=== PATIENT | male | born 1955 | race Caucasian/White ===

== ENCOUNTER 2020-09-01 07:23 | Outpatient (CLI) | payer MEDICARE, OTHER, SELFPAY ==
--- NOTE | ~2020-09-01 | MR_ITS ---
EXAMINATION: MR cervical spine wo con DATE: 09/01/2020 08:10 INDICATION: Cervical spinal stenosis. TECHNIQUE: Magnetic resonance imaging (MRI) of the cervical spine was performed without intravenous c ontrast. Sequences included sagittal T2-weighted FSE, sagittal STIR FSE, sagittal T1-weighted FSE, ax ial MERGE, and axial T2-weighted FSE. COMPARISON: Cervical spine MRI 05/20/2016 FINDINGS: Bone alignment is normal. Vertebral body heights are normal. There are changes of anterior fusion procedure from C5 to C7 with interbody devices and anterior plate and screws. There is mildly decreased disc height at C3-C4. The spinal cord signal intensity is normal. The following disc levels are specifically discussed: C2-C3: The disc does not extend beyond the endplate margin. There is no uncovertebral joint osteoarth ritis. There is mild bilateral facet joint osteoarthritis. There is no neural foraminal stenosis. The re is no central canal stenosis. C3-C4: The disc is bulging. There is mild right and severe left uncovertebral joint osteoarthritis. T here is mild bilateral facet joint osteoarthritis. There is mild right and moderate left neural yossi inal stenosis. There is mild central canal stenosis. C4-C5: There is a central extrusion. There is no uncovertebral joint osteoarthritis. There is moderat e left facet joint osteoarthritis. There is mild left neural foraminal stenosis. There is mild centra l canal stenosis. C5-C6: There is mild bilateral uncovertebral joint hypertrophy. There is mild bilateral facet joint o steoarthritis. There is mild right neural foraminal stenosis. There is no central canal stenosis. C6-C7: There is mild right and moderate left uncovertebral joint hypertrophy. There is mild bilateral facet joint osteoarthritis. There is mild bilateral neural foraminal stenosis. There is no central c anal stenosis. C7-T1: The disc does not extend beyond the endplate margin. There is no uncovertebral joint osteoarth ritis. There is moderate bilateral facet joint osteoarthritis. There is mild bilateral neural foramin al stenosis. There is no central canal stenosis. IMPRESSION: 1. Moderate cervical spondylosis. 2. Anterior fusion procedure from C5 to C7. Reviewed, dictated and finalized at location A. [employer]
== END 2020-09-01 07:24 | disposition home or self-care (01) ==
PROVIDERS: PCP Internal Medicine; Visit Provider Clinical Nurse Specialist
DX: M47.892 Other spondylosis, cervical region (principal); Z98.1 Arthrodesis status
CPT/HCPCS: 72141

== ENCOUNTER 2020-09-27 16:14 | Emergency (ER) | payer MEDICARE, OTHER, SELFPAY ==
--- NOTE | ~2020-09-27 | XR_ITS ---
EXAMINATION: XR finger 3rd RT min 2V DATE: 09/27/2020 16:48 INDICATION: Right hand third digit injury. TECHNIQUE: 4 views of right hand third digit were obtained. COMPARISON: None. FINDINGS: Bone alignment is normal. There is a transverse fracture of tuft of third distal phalanx wi th 1 mm distraction. There is moderate osteoarthritis of third metacarpophalangeal joint and distal i nterphalangeal joint and mild osteoarthritis of third proximal interphalangeal joint. IMPRESSION: 1. Transverse fracture of tuft of third distal phalanx. Reviewed, dictated and finalized at location A.
--- NOTE | 2020-09-27 16:32 | ED.GENADULT ---
HPI - General Adult General Chief complaint: Extremity Injury, Upper Stated complaint: injured 3digit right hand Time Seen by Provider: 09/27/20 16:32 Source: patient Mode of arrival: ambulatory Limitations: no limitations History of Present Illness HPI narrative: 65-year-old male patient presents to the [facility] with complaints of a right middle finger injury. 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 Patient unknown of what his last tetanus shot was. Patient states he did take either Tylenol or ibuprofen this morning after the injury occurred. Patient states he is having pain to the tip of the right middle finger and also some throbbing and states it feels a little numb at this time. Patient states he also has some bruising on the palm side of the fingertip and what appears to be some blood underneath the nail. Related Data Home Medications Medication Instructions Recorded Confirmed diclofenac sodium [Voltaren] 100 mg PO BID 09/27/20 09/27/20 rosuvastatin [Crestor] 10 mg PO DAILY 09/27/20 09/27/20 trazodone 100 mg PO HS 09/27/20 09/27/20 Allergies Allergy/AdvReac Type Severity Reaction Status Date / Time piroxicam Allergy Unknown Verified 02/21/20 14:10 theophylline Allergy tachycardia Verified 07/10/20 13:05 Review of Systems Review of Systems: Narrative: CONSTITUTIONAL: Denies fever, chills, or sweats. EYES: Denies visual changes, redness, or discharge. ENT: Denies rhinorrhea, congestion, sore throat, or otalgia. CARDIOVASCULAR: Denies chest pain, palpitations, or edema. RESPIRATORY: Denies cough or dyspnea. GASTROINTESTINAL: Denies abdominal pain, nausea, vomiting, or diarrhea. GENITOURINARY: Denies dysuria or hematuria. SKIN: Denies rash or itching. MUSCULOSKELETAL: Denies back pain, joint pain, or myalgia. Positive right middle finger pain NEUROLOGIC: Denies headache, numbness, or weakness. PSYCHIATRIC: Denies anxiety or depression. [facility] Past Medical History Medical History ADD (attention deficit disorder) Anxiety BMI 26.0-26.9,adult BPH (benign prostatic hyperplasia) Cognitive dysfunction CTS (carpal tunnel syndrome) Degenerative joint disease of hand Depression Diverticular disease Elevated homocysteine Encounter for Medicare annual wellness exam Encounter for routine adult health examination without abnormal findings GERD (gastroesophageal reflux disease) Headache Hearing loss Hx of Clostridium difficile infection Hx of concussion Hyperlipidemia Memory loss of unknown cause Microscopic hematuria On skilled nursing drug therapy Onychomycosis Osteoarthritis Sleep apnea Vertigo Vitamin D deficiency Surgical History Surgical History H/O rotator cuff surgery Right and Left H/O spinal fusion 2018 History of bowel resection Family History Family History Mother Family history of Alzheimer's disease Depression Father Family history of malignant neoplasm Grandparent Atherosclerosis Sibling Depression Suicide Social History Social History Smoking status: Never smoker Second hand tobacco smoke exposure: No Alcohol intake: current Gender identity (if verbalized by the patient): Male Comments At the time of my signature I agree with nursing past medical history, surgical, social, and family history. There is no relevant family history pertinent to the presenting complaint. Exam Narrative: Exam Narrative: GENERAL: Well-appearing, well-nourished, and in no acute distress. HEAD: Normocephalic, atraumatic. EYES: PERRLA and EOMI. ENT: Nares clear, no rhinorrhea or epistaxis. Mucous membranes moist. NECK: Supple. No lymphadenopathy CHEST: Clear to auscu
[2020-09-27 16:39] VITALS: BP 128/68; PULSE 75; RESP 18; TEMP 36.6; O2SAT 100
[2020-09-27] MEDS: TETANUS,DIPHTHERIA,AC PERTUSSIS ADULT (0.5 ML) BOOSTRIX IM (17:02)
== END 2020-09-27 17:15 | disposition home or self-care (01) ==
PROVIDERS: Emergency Provider Nurse Practitioner Family; PCP Internal Medicine
DX: S62.632A Displaced fracture of distal phalanx of right middle finger, initial encounter for closed fracture (principal); X58.XXXA Exposure to other specified factors, initial encounter; Y99.0 Civilian activity done for income or pay; S60.131A Contusion of right middle finger with damage to nail, initial encounter; Z23 Encounter for immunization; F32.9 Major depressive disorder, single episode, unspecified; K21.9 Gastro-esophageal reflux disease without esophagitis; Z86.19 Personal history of other infectious and parasitic diseases; E78.5 Hyperlipidemia, unspecified; M19.90 Unspecified osteoarthritis, unspecified site; G47.30 Sleep apnea, unspecified
CPT/HCPCS: 11740; 29130; 73140; 90471; 90715; 99214; G0463

== ENCOUNTER 2020-10-16 18:36 | Emergency (ER) | payer MEDICARE, OTHER, SELFPAY ==
[2020-10-16 18:49] VITALS: BP 120/70; PULSE 73; RESP 12; TEMP 36.8; O2SAT 99
--- NOTE | 2020-10-16 18:58 | ED.EYEPROB ---
HPI - Eye Problem General Chief complaint: Eye Problems Stated complaint: Scratched eye Time Seen by Provider: 10/16/20 18:58 Source: patient and RN notes reviewed Mode of arrival: ambulatory Limitations: no limitations History of Present Illness HPI Narrative: 65-year-old male presents with concern for painful, red left eye. Reports earlier today he scratched his eye and since then has been experiencing pain and watery drainage. He denies any vision changes, photophobia. He denies any intervention. He denies any sense of foreign body. chief complaint: eye pain Related Data Home Medications Medication Instructions Recorded Confirmed folic acid 10/16/20 rosuvastatin mg 10/16/20 terbinafine HCl mg 10/16/20 trazodone 10/16/20 Allergies Allergy/AdvReac Type Severity Reaction Status Date / Time piroxicam Allergy Unknown Verified 10/16/20 19:03 theophylline Allergy tachycardia Verified 10/16/20 19:03 Review of Systems Review of Systems: Narrative: CONSTITUTIONAL: Denies malaise, chills, sweats, or fever. EYES: Denies visual changes. Reports left eye pain, redness, watery discharge. ENT: Denies rhinorrhea, congestion, sinus pain, otalgia or sore throat. SKIN: Denies rash or itching. NEUROLOGIC: Denies headache. All systems reviewed & are unremarkable except as noted in HPI and below PMFSH Past Medical History Medical History ADD (attention deficit disorder) Anxiety BMI 26.0-26.9,adult BPH (benign prostatic hyperplasia) Cognitive dysfunction CTS (carpal tunnel syndrome) Degenerative joint disease of hand Depression Diverticular disease Elevated homocysteine Encounter for Medicare annual wellness exam Encounter for routine adult health examination without abnormal findings GERD (gastroesophageal reflux disease) Headache Hearing loss Hx of Clostridium difficile infection Hx of concussion Hyperlipidemia Memory loss of unknown cause Microscopic hematuria On terminal computer operator drug therapy Onychomycosis Osteoarthritis Sleep apnea Vertigo Vitamin D deficiency Surgical History Surgical History H/O rotator cuff surgery Right and Left H/O spinal fusion 2018 History of bowel resection Family History Family History Mother Family history of Alzheimer's disease Depression Father Family history of malignant neoplasm Grandparent Atherosclerosis Sibling Depression Suicide Social History Social History Smoking status: Never smoker Second hand tobacco smoke exposure: No Alcohol intake: current Gender identity (if verbalized by the patient): Male Comments At time of signature, agree with nursing past medical, surgical, social and family history. There is no relevant family history pertinent to the presenting complaint Exam Narrative: Exam Narrative: GENERAL: Well-appearing, well-nourished, and in no acute distress. HEAD: Normocephalic, atraumatic. EYES: PERRLA, conjunctivae clear, and EOMI. No nystagmus. Left sclera injected, corneal abrasion noted upon Christianson lamp exam, see note ENT: Nares clear. Mucous membranes moist. NECK: Supple. CHEST: No respiratory distress. Speaks in full sentences. HEART: Regular rate and rhythm. SKIN: Warm, dry, no rash. NEURO: Alert and oriented x3. PSYCH: Normal mood and affect Course Course Emergency Course: Patient is aware of diagnosis, understands and agrees to treatment plan. Anticipatory guidance given. Patient agrees to follow-up as directed and is aware of reasons to seek care at the emergency department. Portions of this record may have been created with voice recognition software Vital Signs Vital signs: Vital Signs Temperature 98.3 F 10/16/20 18:49 Pulse Rate 73 10/16/20 18:49 Respiratory Rate 12 10/16/20
== END 2020-10-16 19:11 | disposition home or self-care (01) ==
PROVIDERS: Emergency Provider Nurse Practitioner; PCP Internal Medicine
DX: S05.02XA Injury of conjunctiva and corneal abrasion without foreign body, left eye, initial encounter (principal); X58.XXXA Exposure to other specified factors, initial encounter; F98.8 Other specified behavioral and emotional disorders with onset usually occurring in childhood and adolescence; F41.9 Anxiety disorder, unspecified; N40.0 Benign prostatic hyperplasia without lower urinary tract symptoms; M19.049 Primary osteoarthritis, unspecified hand; K21.9 Gastro-esophageal reflux disease without esophagitis; Z86.19 Personal history of other infectious and parasitic diseases; E78.5 Hyperlipidemia, unspecified; M19.90 Unspecified osteoarthritis, unspecified site; G47.30 Sleep apnea, unspecified
CPT/HCPCS: 99213; A9270; G0463

== ENCOUNTER 2020-11-08 12:30 | Outpatient (RCR) | payer MEDICARE, OTHER, SELFPAY ==
--- NOTE | 2020-10-10 15:33 | PTOPEVAL ---
Thank you for referring Ismael Arenas to [facility].? The patient is scheduled to be seen for therapy? 2 x/week for 4 weeks. Please review, sign, date and return this plan of care JOAN. I agree with and certify that the following plan of care is medically necessary. 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 Does not perform an exercise program Subjective Information He c/o JOHNSON and blurry vision or Query Text:As Reported By Patient/ vertigo with neck motion. Family States difficulty with head turning. Denies neck pain vs increased symptoms with head motions. Increased JOHNSON with looking down to read for prolonged period. He has dizziness with changing position from forward flex to upright. Noted to have left UE nerve symptoms that improved following his neck surgery. Pain Assessment Pain Scale Used Numeric (1 - 10) Self Report Pain Assessment Bilateral Neck Reported Pain Level 0 Pain Score Pain Score 0: Self Report Cervical and Lumbar ROM Cervical ROM Cervical Flexion (0-60) 50 Cervical Extension (0-70) 55 Cervical Lateral Flexion Left (0-50) 25 Cervical Rotation Right (0-90) 45 Cervical Rotation Left (0-90) 45 Upper Extremity Range of Motion General Upper Extremity Range of Motion Reason Not Measured WFL/Left,WFL/Right Muscle Length Testing Muscle Length Testing Pectoralis Major- Clavicular Fibers (R) Moderate Tightness,(L) Muscle Length Moderate Tightness Pectoralis Minor Muscle Length (R) Severe Tightness,(L) Severe Tightness Posture Sitting Position Head/C-Spine Posture Forward Head Thoracic Spine Posture Increased Kyphosis Scapula Posture (L) Protracted,(R) Protracted, (L) Depressed,(R) Depressed,(L ) Tipped,(R) Tipped Palpation Assessment Palpation tightness of trap muscle
--- NOTE | 2020-10-25 13:27 | PCPTNOTE ---
Patient did not show up for scheduled appointment this date. Called patient and he thought his appointment was at 3pm.
--- NOTE | 2020-11-08 13:11 | PTOPEVAL ---
Thank you for referring Ismael Arenas to [facility] [place]Note 2[place]? Ismael has attended 6 therapy visits to address neck impairments. He has reached maximal potential with skilled therapy services at this time with goals partially achieved. Will D/C skilled PT services at this time with pt to continue with home program. Please review, sign, date and return this discharge summary JOAN. I agree with and certify that the following plan of care is medically necessary. 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 Subjective Information He denies any JOHNSON and blurry Query Text:As Reported By Patient/ vision or vertigo with neck Family motion. States improved head turning. Reports improved left UE nerve symptoms. Denies any limitations with work activities. Reports prolonged standing in 1 spot causes increased pain. Performing HEP 1x/day Pain Assessment Timing of Pain Assessment Timing of Pain Assessment Re-assessment Pain Scale Pain Scale Used Numeric (1 - 10) Self Report Pain Assessment Bilateral Neck Reported Pain Level 0 Lowest Pain Intensity 0 Greatest Pain Intensity 0 Pain Score Pain Score 0: Self Report Cervical and Lumbar ROM Cervical ROM Cervical Flexion (0-60) 45 cervical ext: 55 Cervical Lateral Flexion Right (0-50) 30 Cervical Lateral Flexion Left (0-50) 25 Cervical Rotation Right (0-90) 65 Cervical Rotation Left (0-90) 56 Cervical and Lumbar Muscle Testing Cervical Muscle Testing Deep Cervical Flexion aleksandr 10 sec with proper neck position Upper Extremity Muscle Strength Testing General Upper Extremity Strength Gross Upper Extremity Strength Comments middle trap: 3+/5, lower trap: 3/5 Palpation Assessment Palpation Palpation slight tightness of trap muscle and cervical and thoracic paraspinals, but no tenderness or suboccipital region PT Clinical Summary Pt referred to therapy due to spondylosis ce
== END 2020-11-13 10:32 | disposition home or self-care (01) ==
LOC: ANHPT 12:30
PROVIDERS: PCP Internal Medicine; Referring Provider Internal Medicine; Visit Provider Clinical Nurse Specialist
DX: M47.812 Spondylosis without myelopathy or radiculopathy, cervical region (principal)
CPT/HCPCS: 97110; 97163

== ENCOUNTER → 2020-11-23 10:45 | Outpatient (CLI) | payer MEDICARE, OTHER, SELFPAY ==
--- NOTE | ~2020-11-23 | XR_ITS ---
EXAMINATION: XR hip RT min 2V DATE: 11/23/2020 10:58 INDICATION: Right hip pain. TECHNIQUE: 2 views of right hip were obtained. COMPARISON: None. FINDINGS: Bone alignment is normal. No fracture. There is mild right hip osteoarthritis. IMPRESSION: 1. Mild right hip osteoarthritis. Reviewed, dictated and finalized at location B.
== END ==
PROVIDERS: PCP Internal Medicine; Visit Provider Clinical Nurse Specialist
DX: M16.11 Unilateral primary osteoarthritis, right hip (principal)
CPT/HCPCS: 73502

== ENCOUNTER 2021-01-19 12:55 | Outpatient (CLI) | payer MEDICARE, OTHER, SELFPAY ==
--- NOTE | ~2021-01-19 | XR_ITS ---
EXAMINATION: XR lg joint inject/asp w image DATE: 01/19/2021 13:52 INDICATION: Right hip arthritis TECHNIQUE: A time-out was performed to verify the patient's name, date of , and procedure to b e performed. The procedure including the risks, benefits, and alternatives was discussed with the pat ient. Risks discussed included bleeding and infection. The patient understood the risks and agreed to proceed. The skin overlying the right hip joint was prepped and draped in usual sterile fashion. A nesthetic was administered with 1% lidocaine subcutaneously. A 22 G needle was advanced under fluoro scopic guidance into the joint. Injection of 1 mL of Omnipaque 240 confirmed intra-articular positio n of the needle. Subsequently, injectate consisting of 3 mL of a 2:1 mixture of 0.5% Marcaine: 80 mg /mL Depo-Medrol for a total dosage of 80 mg Depo-Medrol was instilled. Washout of contrast was seen c onfirming intra-articular administration. The needle was removed and the entry site was cleaned and d ressed. There were no immediate complications. Fluoroscopy exposure time was 2.1 minutes. The total number of images was 1. Total DAP was 0.599 mGycm^2 FINDINGS: Real-time fluoroscopy demonstrates the needle in the right hip joint. Patient's pain prior to procedure:0/10. Patient's pain following the procedure: 0/10. IMPRESSION: 1. Successful right hip joint injection of local anesthetic and steroid. Reviewed, dictated and finalized at location A.
== END 2021-01-19 12:56 | disposition home or self-care (01) ==
LOC: ANHIMG 12:57
PROVIDERS: PCP Internal Medicine; Visit Provider Nurse Practitioner Family
DX: M16.11 Unilateral primary osteoarthritis, right hip (principal)
CPT/HCPCS: 20610; 77002; J1040; Q9966

== ENCOUNTER → 2021-03-01 16:26 | Outpatient (CLI) | payer MEDICARE, OTHER, SELFPAY ==
--- NOTE | ~2021-03-01 | MR_ITS ---
EXAMINATION: MR lumbar spine wo con DATE: 03/01/2021 17:52 INDICATION: Low back pain. TECHNIQUE: Magnetic resonance imaging (MRI) of the lumbar spine was performed without intravenous con trast. Sequences included sagittal T2-weighted FSE, sagittal T2-weighted FS FSE, STIR FSE, sagittal T 1-weighted FSE, and axial T2-weighted FSE. COMPARISON: Lumbar spine radiograph 02/19/2021 FINDINGS: There is 4 degrees levocurvature of lumbar spine. There is 5 mm anterolisthesis of L4 on L5 . Vertebral body heights are normal. There is mildly decreased disc height at L1-L2 and moderately de creased disc height at L4-L5. The distal spinal cord signal intensity is normal. The conus medullaris is at L1. The following disc levels are specifically discussed: L1-L2: The disc is bulging. There is mild bilateral facet joint osteoarthritis. There is mild bilater al neural foraminal stenosis. There is mild central canal stenosis. L2-L3: The disc is mildly bulging. There is moderate right and severe left facet joint osteoarthritis . There is mild bilateral neural foraminal stenosis. There is no central canal stenosis. L3-L4: The disc is bulging and has an annular fissure. There is severe bilateral facet joint osteoart hritis. There is mild bilateral neural foraminal stenosis. There is mild central canal stenosis. L4-L5: The disc is bulging and has an annular fissure. There is severe bilateral facet joint osteoart hritis. There is mild bilateral neural foraminal stenosis. There is moderate central canal stenosis. L5-S1: The disc does not extend beyond the endplate margin. There is moderate right and severe left f acet joint osteoarthritis. There is mild bilateral neural foraminal stenosis. There is no central can al stenosis. IMPRESSION: 1. Moderate lumbar spondylosis. Reviewed, dictated and finalized at location A.
== END ==
PROVIDERS: PCP Internal Medicine; Visit Provider Nurse Practitioner Family
DX: M47.817 Spondylosis without myelopathy or radiculopathy, lumbosacral region (principal); M48.07 Spinal stenosis, lumbosacral region
CPT/HCPCS: 72148

== ENCOUNTER 2021-04-30 01:56 | Day surgery (SDC) | payer MEDICARE, OTHER, SELFPAY ==
[2021-04-23 13:14] VITALS: BMI 22.6
[2021-04-30 11:26] VITALS: BP 114/67; PULSE 69; RESP 16; TEMP 36.8; O2SAT 100
--- NOTE | 2021-04-30 11:32 | WPDGICN ---
Assessment and Plan Assessment and plan (1) Unexplained weight loss: Code(s): R63.4 - Abnormal weight loss Status: Acute Assessment and Plan: Patient not eating. He is reported recent nausea with practically all food intake in this is aggravated epigastric discomfort. Currently not eating as much and has lost significant weight over the last year. (2) Abdominal bloating: Code(s): R14.0 - Abdominal distension (gaseous) Status: Acute Assessment and Plan: Patient has epigastric pain and abdominal bloating. Plan to assess with EGD. He has had significant nausea associated with all food intake. (3) Memory loss of unknown cause: Code(s): R41.3 - Other amnesia Status: Acute (4) Encounter for screening colonoscopy: Code(s): Z12.11 - Encounter for screening for malignant neoplasm of colon Status: Acute Assessment and Plan: Patient presents for screening colonoscopy. He has been almost 10 years since [facility] Consult Note Consult date/time: 04/30/21 11:32 HPI: Ismael Arenas is a 66 year old male Presents for colonoscopy an EGD. Patient reports a 20lb weight loss since August of 2020. He states that he has no specific appetite at present. Earlier since August has noticed nausea with practically all foods. He has noted some epigastric pain this is improved over the last several weeks. No specific changes prompted this improvement. His bowel habits have been very irregular. Alternating diarrhea and constipation. He was initially prescribed omeprazole but felt this made the diarrhea worse. Currently on pantoprazole. Patient has a history of sigmoid resection for diverticulitis in 2011. He has noted some degree of memory loss recently. Because of ongoing difficulties weight loss irregular bowel habits patient presents for screening colonoscopy an EGD. 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 Depression Diverticular disease Elevated homocysteine Encounter for Medicare annual wellness exam Encounter for routine adult health examination without abnormal findings GERD (gastroesophageal reflux disease) Headache Hearing loss Hx of Clostridium difficile infection Hx of concussion Hyperlipidemia Lumbar pain Lumbar pain Lumbar radiculopathy Memory loss of unknown cause Microscopic hematuria Nausea and vomiting On salvage determiner drug therapy Onychomycosis Osteoarthritis Sleep apnea Stomach pain Vertigo Vitamin D deficiency Wears glasses Weight loss Surgical History Surgical History H/O rotator cuff surgery Right and Left H/O spinal fusion 2018 History of bowel resection Family History Family History Mother Family history of Alzheimer's disease Depression Father Family history of malignant neoplasm Grandparent Atherosclerosis Sibling Depression Suicide Other Brain tumor Social History Social History Smoking status: Never smoker Second hand tobacco smoke exposure: No Alcohol intake: current Drinks per week: 4 Substance use: never Substance use type: does not use Living arrangements: with family Gender identity (if verbalized by the patient): Male Spiritual care concerns: No Meds Home Medications and Allergies Home Medications Medication Instructions Recorded Confirmed Type terbinafine HCl 250 mg PO DAILY 10/16/20 04/23/21 History diclofenac so
[2021-04-30] MEDS: LACTATED RINGERS 1,000 ML 150 ML IV CONT (11:33)
--- NOTE | 2021-04-30 11:46 | WPDANESEPPF ---
Anes - Initial Pre Proc Eval Procedure: Operation Date: 04/30/21 13:00 Proposed Procedures p Esophagogastroduodenoscopy & Colonoscopy - Marshal Puga MD Date/Time: 04/30/21 11:46 Surgeon: Marshal Puga MD Pre Op Diagnosis: epigastric pain, change in bowel habits Patient Data Age: 66 Gender: M Height: 1.68 m Weight: 61 kg Last Vital Signs Temp 36.8 C 04/30/21 11:26 Pulse 69 04/30/21 11:26 Resp 16 04/30/21 11:26 BP 114/67 04/30/21 11:26 Pulse Ox 100 04/30/21 11:26 Allergies Allergy/AdvReac Type Severity Reaction Status Date / Time piroxicam Allergy Unknown Verified 04/30/21 11:26 theophylline Allergy tachycardia Verified 04/30/21 11:26 Home Medications Medication Instructions Recorded Confirmed Type terbinafine HCl 250 mg PO DAILY 10/16/20 04/23/21 History diclofenac sodium 75 mg 75 mg PO BID PRN #180 tablet 12/06/20 04/23/21 Rx tablet,delayed release cholecalciferol (vitamin D3) 125 125 mcg PO DAILY 01/08/21 04/23/21 History mcg (5,000 unit) capsule trazodone 50 mg tablet 50 mg PO QHS PRN #90 tablet 02/26/21 04/23/21 Rx Patient hx anesthesia problems: none Family hx anesthesia problems: none Results Review: All pre-operative results and documents have been reviewed as part of the pre-operative evaluation. 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 Depression Diverticular disease Elevated homocysteine Encounter for Medicare annual wellness exam Encounter for routine adult health examination without abnormal findings GERD (gastroesophageal reflux disease) Headache Hearing loss Hx of Clostridium difficile infection Hx of concussion Hyperlipidemia Lumbar pain Lumbar pain Lumbar radiculopathy Memory loss of unknown cause Microscopic hematuria Nausea and vomiting On ocean transportation intermediary drug therapy Onychomycosis Osteoarthritis Sleep apnea Stomach pain Vertigo Vitamin D deficiency Wears glasses Weight loss Surgical History Surgical History H/O rotator cuff surgery Right and Left H/O spinal fusion 2018 History of bowel resection Family History Family History Mother Family history of Alzheimer's disease Depression Father Family history of malignant neoplasm Grandparent Atherosclerosis Sibling Depression Suicide Other Brain tumor Social History Social History Smoking status: Never smoker Second hand tobacco smoke exposure: No Alcohol intake: current Drinks per week: 4 Substance use: never Substance use type: does not use Living arrangements: with family Gender identity (if verbalized by the patient): Male Spiritual care concerns: No Anes - Eval Final PreProcedure Day of Procedure 04/30/21 11:46 Patient weight: normal Heart: regular rate and rhythm Lungs: clear to auscultation Airway: Mallampati scale class 1 Neurological: other (alert) Last oral intake: >/= 8 hours ASA classification: III Emergent: no Anesthetic plan: proceed Anesthesia type and monitoring: general GIVS and standard monitoring Results Review: All pre-operative results and documents have been reviewed as part of the pre-operative evaluation. Informed Consent: The patient's anesthetic plan and its attendant risks and benefits were discussed with the patient/family/POA. Questions were solicited and answers provided to the satisfaction of the patient/family/POA.
[2021-04-30 12:24] VITALS: BP 75/35; PULSE 58; RESP 16; O2SAT 100
[2021-04-30 12:34] VITALS: BP 74/38; PULSE 57; RESP 16; O2SAT 99
[2021-04-30 12:43] VITALS: BP 106/46; PULSE 60; RESP 16; O2SAT 98
== END 2021-04-30 13:01 | disposition home or self-care (01) ==
PROVIDERS: PCP Internal Medicine; Visit Provider Internal Medicine Gastroenterology
PROC: 0DJ08ZZ Inspection of Upper Intestinal Tract, Via Natural or Artificial Opening Endoscopic (ICD-10-PCS; CPT 43235; principal; 2021-04-30 13:00)
DX: Z12.11 Encounter for screening for malignant neoplasm of colon (principal); R10.13 Epigastric pain; K64.8 Other hemorrhoids; K57.30 Diverticulosis of large intestine without perforation or abscess without bleeding; R14.0 Abdominal distension (gaseous); K31.7 Polyp of stomach and duodenum; F41.8 Other specified anxiety disorders; F98.8 Other specified behavioral and emotional disorders with onset usually occurring in childhood and adolescence; M19.90 Unspecified osteoarthritis, unspecified site; N40.0 Benign prostatic hyperplasia without lower urinary tract symptoms; K21.9 Gastro-esophageal reflux disease without esophagitis; E78.5 Hyperlipidemia, unspecified; M54.16 Radiculopathy, lumbar region; R41.3 Other amnesia; E55.9 Vitamin D deficiency, unspecified; R63.4 Abnormal weight loss
CPT/HCPCS: 43251; G0121; 88305; J2704; J7120

== ENCOUNTER 2023-09-15 13:56 | Outpatient (CLI) | payer MEDICARE, OTHER, SELFPAY ==
[2023-09-15 19:30] LABS: Iron 105 ug/dL (49-181)
[2023-09-15 20:01] LABS: Alanine Aminotransferase 14 U/L (6-50); Albumin Level 4.1 g/dL (3.5-5.1); Alkaline Phosphatase 47 U/L (38-126); Anion Gap 5 mmol/L (8-16); Aspartate Amino Transferase 30 U/L (17-59); Bilirubin,Total 0.5 mg/dL (0.2-1.3); Blood Urea Nitrogen 29 mg/dL (9-20); Calcium 9.2 mg/dL (8.4-10.2); Carbon Dioxide 31 mmol/L (22-30); Chloride 103 mmol/L (98-107); Estimated Glomerular Filt Rate > 60; Glucose 88 mg/dL (65-110); Potassium 5.5 mmol/L (3.4-5.0); Sodium 139 mmol/L (137-145)
[2023-09-15 20:22] LABS: Percent Iron Saturation 36 % (20-50); Vitamin D 25 Hydroxy 93.2 ng/mL
[2023-09-15 20:31] LABS: Prostate Specific Antigen 2.1 ng/mL (< OR = 4.0)
[2023-09-15 20:43] LABS: Hemoglobin A1C 5.4 % (<5.7)
[2023-09-18 03:29] LABS: Thyroid Peroxidase Antibodies <1 IU/mL (<9)
[2023-09-18 14:04] LABS: Testosterone Free 122.1 pg/mL (30.0-135.0); Testosterone Total 773 ng/dL (250-1100)
== END 2023-09-15 13:57 | disposition home or self-care (01) ==
PROVIDERS: PCP Internal Medicine; Visit Provider Clinical Nurse Specialist
DX: E55.9 Vitamin D deficiency, unspecified (principal); E78.5 Hyperlipidemia, unspecified; F09 Unspecified mental disorder due to known physiological condition; F41.9 Anxiety disorder, unspecified; R53.83 Other fatigue; R97.20 Elevated prostate specific antigen [PSA]; Z12.5 Encounter for screening for malignant neoplasm of prostate; E78.2 Mixed hyperlipidemia; R74.8 Abnormal levels of other serum enzymes; Z79.899 Other long term (current) drug therapy
CPT/HCPCS: 36415; 80053; 82306; 82607; 82728; 83036; 83540; 83550; 84153; 84402; 84403; 84443; 86376

== ENCOUNTER 2023-09-29 12:48 | Outpatient (CLI) | payer MEDICARE, OTHER, SELFPAY ==
--- NOTE | ~2023-09-29 | MR_ITS ---
EXAMINATION: MR brain/brain stem wo/w con DATE: 09/29/2023 13:27 INDICATION: Dizziness. Blurry vision. TECHNIQUE: Magnetic resonance imaging (MRI) of the brain and brainstem was performed without and with 14 mL MultiHance intravenous contrast. COMPARISON: Brain MRI 12/06/2018 FINDINGS: There is no intracranial hemorrhage, acute infarction, or abnormal intracranial mass lesion . There are scattered areas of nonspecific increased T2-weighted signal intensity in the cerebral whi te matter, which is within normal limits for the patient's age. The ventricles are normal in size. Th ere is mild mucosal thickening in the paranasal sinuses. The orbits are normal. The mastoid air cells are normal. IMPRESSION: 1. Normal aging brain. Reviewed, dictated and finalized at location A. IMPRESSION: 1. Normal aging brain.
[2023-09-29 14:45] LABS: Basophils Absolute Auto 0.1 K/mm3 (0.0-0.1); Basophils Percent Auto 1.4 % (0.2-1.2); Eosinophils Absolute Auto 0.1 K/mm3 (0-0.3); Eosinophils Percent Auto 1.7 % (0-4.4); Hematocrit 40.4 % (42.0-52.0); Hemoglobin 13.4 g/dL (14.0-18.0); Immature Granulocyte Absolute 0.01 K/mm3 (0.00-0.031); Immature Granulocyte Percent A 0.2 % (0-0.5); Lymphocytes Absolute Auto 1.44 K/mm3 (0.9-3.2); Lymphocytes Percent Auto 22.2 % (18.3-44.2); Mean Corpuscular HGB Conc 33.2 g/dl (32-36); Mean Corpuscular Hemoglobin 31.3 pg (26-34); Mean Corpuscular Volume 94.4 fl (80-100); Mean Platelet Volume 9.6 fl (7.4-10.4); Monocytes Absolute Auto 0.6 K/mm3 (0.1-0.6); Monocytes Percent Auto 9.7 % (2.6-8.5); Neutrophils Absolute Auto 4.2 K/mm3 (1.3-6.7); Neutrophils Percent Auto 64.8 % (45.5-73.1); Platelet Count Result 296 k/mm3 (150-375); Red Blood Count 4.28 M/mm3 (4.6-6.20); Red Cell Distribution Width 12.3 % (11.5-14.5); White Blood Count 6.5 K/mm3 (4.5-10.0)
== END 2023-09-29 12:49 | disposition home or self-care (01) ==
PROVIDERS: PCP Internal Medicine; Visit Provider Clinical Nurse Specialist
DX: F09 Unspecified mental disorder due to known physiological condition (principal); E55.9 Vitamin D deficiency, unspecified; E78.2 Mixed hyperlipidemia; F41.9 Anxiety disorder, unspecified; R53.83 Other fatigue; R97.20 Elevated prostate specific antigen [PSA]
CPT/HCPCS: 36415; 70553; 85025; A9577

== ENCOUNTER 2023-10-08 11:36 | Emergency (ER) | payer MEDICARE, OTHER, SELFPAY ==
--- NOTE | ~2023-10-08 | XR_ITS ---
EXAMINATION: XR foot RT min 3V DATE: 10/08/2023 12:04 INDICATION: Right fourth toe injury. TECHNIQUE: 4 views of right foot were obtained. COMPARISON: None. FINDINGS: Bone alignment is normal. No fracture. There is mild osteoarthritis of first metatarsophala ngeal joint and some of the interphalangeal joints. IMPRESSION: 1. Mild polyarticular osteoarthritis. Reviewed, dictated and finalized at location A.
[2023-10-08 11:49] VITALS: BP 148/74; PULSE 91; RESP 16; TEMP 36.9; O2SAT 98
--- NOTE | 2023-10-08 12:08 | ED.LOWEXIN ---
HPI - Extremity Injury (Lower) General Chief Complaint: Extremity Injury, Lower Stated Complaint: right toe injury Time Seen by Provider: 10/08/23 12:16 Source: patient and RN notes reviewed Mode of arrival: ambulatory Limitations: no limitations History of Present Illness HPI Narrative: 68-year-old male presents with concern for injury to the 4th toe of the right foot. Reports yesterday he noticed it was purple. Reports he has foot drop and nerve damage so he does not typically have sensation there. He denies pain. Denies open skin MD complaint: foot injury Related Data Home Medications Medication Instructions Recorded Confirmed cholecalciferol (vitamin D3) 125 125 mcg PO DAILY 01/08/21 10/08/23 mcg (5,000 unit) capsule sertraline 50 mg tablet 50 mg PO DAILY 02/04/22 10/08/23 mecobalamin (vitamin B12) 1,000 1,000 mcg PO DAILY 06/09/23 10/08/23 mcg chewable tablet terbinafine HCl 250 mg tablet 250 mg PO DAILY 06/09/23 10/08/23 Allergies Allergy/AdvReac Type Severity Reaction Status Date / Time piroxicam Allergy Unknown Verified 10/08/23 11:38 theophylline Allergy tachycardia Verified 10/08/23 11:38 Review of Systems Review of Systems: CONSTITUTIONAL: Denies malaise, chills, sweats, or fever. SKIN: Denies rash or itching, open skin, laceration, abrasion, redness, warmth, swelling. 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 Depression Diverticular disease Elevated homocysteine Encounter for Medicare annual wellness exam Encounter for routine adult health examination without abnormal findings GERD (gastroesophageal reflux disease) Headache Hearing loss Hx of Clostridium difficile infection Hx of concussion Hyperlipidemia Lumbar pain Lumbar pain Lumbar radiculopathy Memory loss of unknown cause Microscopic hematuria Nausea and vomiting On residential drug therapy Onychomycosis Osteoarthritis Sleep apnea Stomach pain Vertigo Vitamin D deficiency Wears glasses Weight loss Surgical History Surgical History H/O rotator cuff surgery Right and Left H/O spinal fusion 2018 History of bowel resection Family History Family History Mother Family history of Alzheimer's disease Depression Father Family history of malignant neoplasm Grandparent Atherosclerosis Sibling Depression Suicide Other Brain tumor Social History Social History Smoking status: Never smoker Second hand tobacco smoke exposure: No Alcohol intake: current Drinks per week: 4 Substance use: never Substance use type: does not use Lack of Transportation: No Lack of Food: Never True Current Housing: I Have Housing Concerned About Future Housing: No Difficulty Paying Gas/Electric Bills: No Currently Unemployed: No Education: High School Diploma/GED Difficulty w/ Childcare or Family Care: No Living arrangements: with family Gender identity (if verbalized by the patient): Male Spiritual care concerns: No Comments At time of signature, agree with nursing past medical, surgical, social and family history. There is no relevant family history pertinent to the presenting complaint Exam Narrative: GENERAL: Well-appearing, well-nourished, and in no acute distress. HEAD: Normocephalic, atraumatic. EYES: PERRLA, conjunctivae clear NECK: Supple. C
== END 2023-10-08 12:22 | disposition home or self-care (01) ==
PROVIDERS: Emergency Provider Nurse Practitioner; PCP Internal Medicine
DX: S90.121A Contusion of right lesser toe(s) without damage to nail, initial encounter (principal); X58.XXXA Exposure to other specified factors, initial encounter; F41.9 Anxiety disorder, unspecified; M19.90 Unspecified osteoarthritis, unspecified site; N40.0 Benign prostatic hyperplasia without lower urinary tract symptoms; K21.9 Gastro-esophageal reflux disease without esophagitis; E55.9 Vitamin D deficiency, unspecified; M19.041 Primary osteoarthritis, right hand; M16.11 Unilateral primary osteoarthritis, right hip
CPT/HCPCS: 73630; 99213; G0463

== ENCOUNTER 2024-12-16 14:18 | Outpatient (CLI) | payer MEDICARE, OTHER, SELFPAY ==
--- OUTSIDE RECORDS SUMMARY | 2024-12-16 14:31 | XMS_ITS | Referral Summary ---
Author Organization [facility] [address] Address [address] [place] [address] Care Team Providers Care Commodity Lead Name Role Phone Jesus Jay DO Primary Care Provider [phone]- [phone] Allergies No known active allergies Medications diclofenac DR (VOLTAREN) 75 mg EC tablet 2 Active rosuvastatin (CRESTOR) 10 mg tablet Take 1 tablet (10 mg total) by mouth daily 2 Active sildenafiL (VIAGRA) 50 mg tablet TAKE 1 TABLET BY MOUTH ONCE DAILY NEEDED FOR SEXUAL ACTIVITY. ADMINISTER 30 MINUTES TO 4 HOURS BEFORE ACTIVITY. DO NOT EXCEED 100 MG IN 24 HOURS. 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 Gender Identity Not on file Sexual Orientation Not on file Last Filed Vital Signs Vital Sign Reading Time Taken Comments Blood Pressure 120/73 10/29/2022 3:00 PM CDT Pulse 80 10/29/2022 3:00 PM CDT Temperature 37.2 C (98.9 F) 10/29/2022 3:00 PM CDT Respiratory Rate - - Oxygen Saturation 97% 10/29/2022 3:00 PM CDT Inhaled Oxygen Concentration - - Weight 67.1 kg (148 lb) 10/29/2022 3:00 PM CDT Height 167.6 cm (5' 6) 10/29/2022 3:00 PM CDT Body Mass Index 23.89 10/29/2022 3:00 PM CDT Plan of Treatment Not on file Insurance MEDICARE [facility] MEDICARE [facility] MEDICARE [facility] Care Teams Commodity Lead Relationship Specialty Start Date End Date Jesus Jay DO PCP - General Internal Medicine 11/19/21
--- OUTSIDE RECORDS SUMMARY | 2024-12-16 14:31 | XMS_ITS | Clinical Summary ---
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 Gender Identity Not on file Sexual Orientation Not on file Obstetrics History Last Filed Vital Signs Vital Sign Reading [...] 10/29/2022 3:00 PM CDT Plan of Treatment Health Maintenance Due Date Last Done Comments Colon Cancer Screening-Colonoscopy 1955 Depression Screening 1953 Fall Risk Assessment 1953 Hepatitis C Screening 1953 Hepatitis B Screening 1971 Pneumococcal vaccine 65+ (1 of 1 - PCV) 2003 Abdominal Aortic Aneurysm (A AA) Screen 2018 Well Visit 65+ 2018 Covid-19 Vaccine ( season) 2024, 08/29/2020 Influenza Vaccine (Season Ended) 2025 05/09/20 18, 08/24/2013 DTaP/Tdap/Td Vaccine (2 - Td or Tdap) 09/27/2030 Zoster Vaccine Completed 08/16/2020, 07/31, 01/05/2019 Insurance MEDICARE [facility] MEDICARE [facility] MEDICARE [facility] Care Teams Rebar Bender Relationship Specialty Start Date End Date Jesus Jay DO PCP - General Internal Medicine 11/19/21
[2024-12-16 19:53] LABS: Basophils Absolute Auto 0.1 K/mm3 (0.0-0.1); Basophils Percent Auto 0.9 % (0.2-1.2); Eosinophils Absolute Auto 0.1 K/mm3 (0-0.3); Eosinophils Percent Auto 0.7 % (0-4.4); Hematocrit 45.5 % (42.0-52.0); Hemoglobin 15.1 g/dL (14.0-18.0); Immature Granulocyte Absolute 0.02 K/mm3 (0.00-0.031); Immature Granulocyte Percent A 0.2 % (0-0.5); Lymphocytes Absolute Auto 1.44 K/mm3 (0.9-3.2); Lymphocytes Percent Auto 15.8 % (18.3-44.2); Mean Corpuscular HGB Conc 33.2 g/dl (32-36); Mean Corpuscular Hemoglobin 30.9 pg (26-34); Mean Platelet Volume 9.4 fl (7.4-10.4); Monocytes Absolute Auto 0.7 K/mm3 (0.1-0.6); Neutrophils Absolute Auto 6.8 K/mm3 (1.3-6.7); Neutrophils Percent Auto 74.4 % (45.5-73.1); Platelet Count Result 348 k/mm3 (150-375); Red Blood Count 4.89 M/mm3 (4.6-6.20); Red Cell Distribution Width 12.2 % (11.5-14.5); White Blood Count 9.1 K/mm3 (4.5-10.0)
[2024-12-16 20:16] LABS: Alanine Aminotransferase 19 U/L (6-50); Albumin Level 4.4 g/dL (3.5-5.1); Alkaline Phosphatase 51 U/L (38-126); Anion Gap 8 mmol/L (4-12); Aspartate Amino Transferase 42 U/L (17-59); Bilirubin,Total 0.8 mg/dL (0.2-1.3); Blood Urea Nitrogen 33 mg/dL (9-20); Calcium 9.5 mg/dL (8.4-10.2); Carbon Dioxide 30 mmol/L (22-30); Chloride 100 mmol/L (98-107); Cholesterol 178 mg/dL (0-200); Estimated Glomerular Filt Rate > 60; Glucose 84 mg/dL (65-110); HDL Direct 82 mg/dL; Magnesium 2.4 mg/dL (1.6-2.3); Potassium 4.6 mmol/L (3.4-5.0); Sodium 138 mmol/L (137-145); Total Protein 7.5 g/dL (6.3-8.2); Triglycerides 69 mg/dL (<150)
[2024-12-16 20:33] LABS: LDL Cholesterol Direct 74 mg/dL
[2024-12-16 20:49] LABS: Prostate Specific Antigen 2.4 ng/mL (< OR = 4.0)
[2024-12-16 21:23] LABS: Hemoglobin A1C 5.5 % (<5.7)
== END 2024-12-16 14:19 | disposition home or self-care (01) ==
LOC: ANHGOSHLAB 14:19
PROVIDERS: PCP Internal Medicine; Visit Provider Clinical Nurse Specialist
DX: R42 Dizziness and giddiness (principal); Z13.29 Encounter for screening for other suspected endocrine disorder; Z12.5 Encounter for screening for malignant neoplasm of prostate; R41.3 Other amnesia; F09 Unspecified mental disorder due to known physiological condition; R53.83 Other fatigue; R73.01 Impaired fasting glucose; E78.2 Mixed hyperlipidemia; R25.2 Cramp and spasm
CPT/HCPCS: 36415; 80053; 80061; 82607; 83036; 83735; 84153; 84443; 85025; G0103